=== PATIENT | female | born 1930 | race Caucasian/White ===

== ENCOUNTER 2017-02-28 19:39 | Emergency (ER) | payer MEDICARE, OTHER ==
[~2017-02-28] VITALS: Ht 154.9 cm; Wt 49.9 kg
[2017-02-28 20:21] LABS: BASOPHILS % (AUTO) 0.1 % (0.0-2.0); HEMATOCRIT 35.4 % (31.2-41.9); LYMPHOCYTES # (AUTO) 0.5 K/uL (20.0-40.0); LYMPHOCYTES % (AUTO) 7.2 % (20.5-51.5); MEAN CORPUSCULAR HEMOGLOBIN 29.9 uug (24.7-32.8); MEAN CORPUSCULAR HGB CONC 34 g/dL (32.3-35.6); MEAN CORPUSCULAR VOLUME 88.1 fL (75.5-95.3); MONOCYTES # (AUTO) 0.4 K/uL (2.0-10.0); MONOCYTES % (AUTO) 5.9 % (0.0-11.0); NEUTROPHILS # (AUTO) 5.5 K/uL (1.8-8.9); NEUTROPHILS % (AUTO) 86.8 % (38.5-71.5); PLATELET COUNT (AUTO) 242 K/uL (179-408); RED BLOOD CELL COUNT(AUTO) 4.02 MIL/uL (3.63-4.92); WHITE BLOOD COUNT (AUTO) 6.4 K/uL (3.8-11.8)
[2017-02-28 20:27] LABS: CARBON DIOXIDE 27 mmol/L (21-32); CHLORIDE 101 mmol/L (98-107); CREATININE 0.9 mg/dL (0.6-1.3); GLUCOSE 168 mg/dL (74-106); POTASSIUM 3.7 mmol/L (3.5-5.1); UREA NITROGEN, BLOOD 24 mg/dL (7-18)
[2017-02-28 20:40] LABS: ALANINE AMINOTRANSFERASE 28 U/L (14-59); ALKALINE PHOSPHATASE 89 U/L (50-136); ASPARTATE AMINOTRANSFERASE 31 U/L (15-37); BILIRUBIN,DIRECT 0.1 mg/dL (0.0-0.2); BILIRUBIN,TOTAL 0.5 mg/dL (0.2-1.0); TOTAL PROTEIN, SERUM 7.2 g/dL (6.4-8.2)
[2017-02-28] MEDS ORDERED: LEVOFLOXACIN 500 MG TABLET (20:45)
[2017-02-28] MEDS ORDERED: ONDANSETRON ODT 4 MG TABLET (20:45)
[2017-02-28] MEDS ORDERED: ALBU8HFA4 (20:46)
[2017-02-28] MEDS ORDERED: ATIVAN (20:46)
[2017-02-28] MEDS ORDERED: LIPITOR (20:46)
[2017-02-28] MEDS ORDERED: LORA0.5T PO (21:06)
[2017-02-28] MEDS ORDERED: AZEL23SP EA NOSTRIL (21:06)
[2017-02-28] MEDS ORDERED: PRED20TA PO (21:06)
[2017-02-28] MEDS ORDERED: ALBUTEROL INHALER INH (21:06)
[2017-02-28] MEDS ORDERED: METR500T4 PO (21:06)
[2017-02-28] MEDS ORDERED: BIOT5TAB PO (21:06)
[2017-02-28] MEDS ORDERED: LACT1CAP65 PO (21:06)
[2017-02-28] MEDS ORDERED: ATOR40TA PO (21:06)
[2017-02-28] MEDS ORDERED: ONDA4TAB8 PO (21:06)
[2017-02-28] MEDS ORDERED: GUAI-671 PO (21:06)
[2017-02-28] MEDS ORDERED: AMLO5TAB2 PO (21:06)
[2017-03-01 02:35] VITALS: BP 119/68
[2017-03-08] MEDS ORDERED: IPRATROPIUM BROMIDE 0.5 MG/2.5 ML NEBU ONE (16:57)
[2017-03-08] MEDS ORDERED: ALBUTEROL SULFATE 2.5 MG/ 0.5 ML NEBU ONE (16:57)
[2017-03-20] MEDS ORDERED: FUROSEMIDE 40 MG/4 ML VIAL ONE (20:05)
[2017-03-20] MEDS ORDERED: NITROGLYCERIN OINT 1 GM PACKET TP ONE (20:05)
== END 2017-03-01 02:35 | disposition home or self-care (01) ==
LOC: ER 19:40
DX: A04.72 Enterocolitis due to Clostridium difficile, not specified as recurrent (principal); J44.9 Chronic obstructive pulmonary disease, unspecified; Z88.2 Allergy status to sulfonamides; Z88.5 Allergy status to narcotic agent
CPT/HCPCS: 36415; 71045; 80048; 80076; 83605; 83880; 84484; 85025; 87040 ×2; 93005; 99285; A4663; 70030-TC

== ENCOUNTER 2020-10-29 00:08 | Inpatient (IN) | payer MEDICARE, BC ==
[~2020-10-29] VITALS: Ht 154.9 cm; Wt 42.2 kg
[~2020-10-29 00:08] MED LIST: ALBU8HFA4; ALBUTEROL INHALER INH; AMLO-212 PO; ATIVAN; ATOR40TA PO; AZEL23SP EA NOSTRIL; BIOT5TAB PO; GUAI-671 PO; LACT1CAP65 PO; LEVOFLOXACIN 500 MG TABLET; LIPITOR; LORA0.5T PO; METR-147 PO; ONDA4TAB8 PO; ONDANSETRON ODT 4 MG TABLET; PRED20TA PO
--- NOTE | 2020-10-29 00:25 | NUR ---
Pt bib ambulance from home, cc chest pain. [facility]. pt states she has pneumonia. Pt. sp02 97% ra. Pt aox4.
[2020-10-29 00:44] LABS: HEMATOCRIT 38.7 % (31.2-41.9); MEAN CORPUSCULAR HEMOGLOBIN 30.4 uug (24.7-32.8); PLATELET COUNT (AUTO) 321 K/uL (179-408)
[2020-10-29 00:46] LABS: CREATININE 0.8 mg/dL (0.6-1.3); POTASSIUM 3.6 mmol/L (3.5-5.1)
[2020-10-29] MEDS ORDERED: ALBU8.5H8 IH (01:01)
[2020-10-29] MEDS ORDERED: ONDA4TAB11 PO (01:01)
[2020-10-29] MEDS ORDERED: LEVO75TA7 PO (01:01)
[2020-10-29] MEDS ORDERED: LORA-259 PO (01:01)
--- NOTE | 2020-10-29 01:30 | NUR ---
Reposition pt. in bed, offered pt. food. Pt. now resting with eyes closed. Cp improved slightly. NAD. Vss. Will continue to monitor.
--- NOTE | 2020-10-29 03:23 | NUR ---
Called [facility] for panel call, dr. landrum will call back.
[2020-10-29] MEDS ORDERED: ACETAMINOPHEN 325 MG TABLET PO PRN (04:30)
[2020-10-29] MEDS ORDERED: ONDANSETRON 4 MG/2 ML VIAL IV PRN (04:30)
[2020-10-29] MEDS ORDERED: Z GUARD REMEDY PASTE 57 GM TUBE TOP PRN (04:30)
--- NOTE | 2020-10-29 04:39 | NUR ---
Gave report to YUDITH Richey.
--- NOTE | 2020-10-29 06:06 | NUR ---
Pt had 1 episode of diarrhea. Cleaned pt up, repositioned pt. Pt now sleeping. NAD. Vss. Will continue to monitor.
[2020-10-29] MEDS ORDERED: ONDANSETRON 4 MG/2 ML VIAL ONE (07:10)
--- NOTE | 2020-10-29 08:21 | NUR ---
Gave report to YUDITH Orozco
--- NOTE | 2020-10-29 08:45 | NUR ---
Patient received from ER via gurney, alert and oriented x4. Assisted with ambulating patient to the bathroom to void. Gait is steady, but weak. Patient NSR on monitor at this time. Left hand IV intact and patent with no redness or swelling noted at this time. No c/o chest pain or nausea. No acute distress noted at this time. Made comfortable and oriented patient to room. Call light and personal belongings within easy reach. Will continue to monitor.
[2020-10-29 09:14] VITALS: BP 152/68
[2020-10-29] MEDS: ASPIRIN 81 MG TAB.CHEW PO SCH (09:31)
[2020-10-29 11:20] VITALS: BP 153/65
--- NOTE | 2020-10-29 14:00 | NUR ---
Patient's , Nash at bedside. According to the patient's , patient became agitated and needed to be restrained at [facility] a few days ago, which is why she ended up leaving [facility]. Will endorse to next shift so they are aware.
[2020-10-29 15:13] VITALS: BP 136/58
[2020-10-29 20:00] VITALS: BP 112/78
--- NOTE | 2020-10-29 20:00 | NUR ---
RECEIVED PATIENT AWAKE IN BED. A/O X3. DENIES ANY PAIN OR DISCOMFORT. NO RESP. DISTRESS NOTED. H/L INTACT AND NOTED TO LEFT HAND #20 GAUGE. ON TELE SR WITH OCCASIONAL PAC'S. C/O ABDOMINAL PAIN, STATING ITS HER IBS. VS WNL. CALL LIGHT IN REACH. ALL NEEDS ATTENDED. WILL CONTINUE TO MONITOR AND ASSESS.
[2020-10-29] MEDS ORDERED: LORAZEPAM 1 MG TABLET PO PRN (20:15)
[2020-10-30] VITALS: BP 124/70
[2020-10-30 04:00] VITALS: BP 131/65
[2020-10-30 07:58] LABS: HEMATOCRIT 36.8 % (31.2-41.9); MEAN CORPUSCULAR HEMOGLOBIN 31.4 uug (24.7-32.8); MEAN CORPUSCULAR VOLUME 91.7 fL (75.5-95.3); PLATELET COUNT (AUTO) 352 K/uL (179-408)
[2020-10-30 08:04] LABS: BILIRUBIN,TOTAL 0.3 mg/dL (0.2-1.0); CREATININE 0.7 mg/dL (0.6-1.3); PHOSPHOROUS 3.3 mg/dL (2.5-4.9); POTASSIUM 3.9 mmol/L (3.5-5.1); TOTAL PROTEIN, SERUM 6.9 g/dL (6.4-8.2)
[2020-10-30] MEDS: ASPIRIN 81 MG TAB.CHEW PO SCH (08:05)
[2020-10-30 08:45] LABS: THYROID STIMULATING HORMONE 2.377 mIU/mL (0.358-3.740)
[2020-10-30 12:00] VITALS: BP 120/60
[2020-10-30] MEDS ORDERED: IOHEXOL 350 100 ML INFUS..BTL ONE (14:44)
[2020-10-30] MEDS ORDERED: SWABABLE VALVE TRANSFER SET EA MC ONE (14:44)
[2020-10-30] MEDS ORDERED: IV NORMAL SALINE 250 ML IV ONE (14:44)
[2020-10-30 16:00] VITALS: BP 120/55
[2020-10-30] MEDS ORDERED: ENSURE ENLIVE (VAN) 240 ML LIQUID PO SCH (17:00)
--- NOTE | 2020-10-30 18:05 | NUR ---
dc orders received noted and carried out.dc instruction and education given to the pt.dc heplock per md orders,pt left the facility via private car in stable condition
== END 2020-10-30 18:00 | disposition home or self-care (01) | DRG 392 ==
LOC: ER 00:12 → EDBD 08:28 → TELE3 08:28 → MEDSURG3 10-30 12:05
PROVIDERS: ADMIT Student in an Organized Health Care Education/Training Program; ATTEND Student in an Organized Health Care Education/Training Program
DX: K21.9 Gastro-esophageal reflux disease without esophagitis (principal); E44.0 Moderate protein-calorie malnutrition; Z68.1 Body mass index [BMI] 19.9 or less, adult; F03.90 Unspecified dementia, unspecified severity, without behavioral disturbance, psychotic disturbance, mood disturbance, and anxiety; I10 Essential (primary) hypertension; J44.9 Chronic obstructive pulmonary disease, unspecified; E03.9 Hypothyroidism, unspecified; E78.5 Hyperlipidemia, unspecified; Z20.822 Contact with and (suspected) exposure to COVID-19; J45.909 Unspecified asthma, uncomplicated; Z87.01 Personal history of pneumonia (recurrent); Z79.890 Hormone replacement therapy; F41.9 Anxiety disorder, unspecified
CPT/HCPCS: 36415; 70030-TC; 71045; 71275; 84100; 84443; 85025; 93005; 93307; A4663; G0378; J2405; J7050; Q9967

== ENCOUNTER 2021-10-11 02:37 | Inpatient (IN) | payer MEDICARE, BC ==
[~2021-10-11] VITALS: Ht 154.9 cm; Wt 48.5 kg
[~2021-10-11 02:37] MED LIST changes: +ALBU8.5H8 IH; -ALBU8HFA4; -ALBUTEROL INHALER INH; -ATIVAN; -AZEL23SP EA NOSTRIL; -BIOT5TAB PO; -GUAI-671 PO; -LACT1CAP65 PO; +LEVO75TA7 PO; -LEVOFLOXACIN 500 MG TABLET; -LIPITOR; +LORA-259 PO; -LORA0.5T PO; -METR-147 PO; +ONDA4TAB11 PO; -ONDA4TAB8 PO; -ONDANSETRON ODT 4 MG TABLET; -PRED20TA PO
--- NOTE | 2021-10-11 02:50 | NUR ---
Dr Monsalve into eval patient.
[2021-10-11] MEDS ORDERED: HYDROMORPHONE 1 MG/1 ML DISP.SYRIN IV ONE (03:15)
[2021-10-11] MEDS ORDERED: PROCHLORPERAZINE EDISYLATE 10 MG/2 ML VIAL IV ONE (03:15)
[2021-10-11] MEDS ORDERED: IV NORMAL SALINE 1000 ML BAG IV ONE (03:15)
[2021-10-11] MEDS ORDERED: PROCHLORPERAZINE EDISYLATE 10 MG/2 ML VIAL ONE (03:20)
[2021-10-11] MEDS ORDERED: HYDROMORPHONE 1 MG/1 ML DISP.SYRIN ONE (03:21)
[2021-10-11 03:40] LABS: CARBON DIOXIDE 25 mmol/L (21-32); CHLORIDE 101 mmol/L (98-107); CREATININE 0.7 mg/dL (0.6-1.3); GLUCOSE 153 mg/dL (74-106); HEMATOCRIT 36.9 % (31.2-41.9); MEAN CORPUSCULAR HEMOGLOBIN 30.3 uug (24.7-32.8); MEAN CORPUSCULAR VOLUME 88.2 fL (75.5-95.3); PLATELET COUNT (AUTO) 289 K/uL (179-408); POTASSIUM 3.7 mmol/L (3.5-5.1); UREA NITROGEN, BLOOD 12 mg/dL (7-18)
--- NOTE | 2021-10-11 03:45 | NUR ---
Called [facility] to obtain visit record from ER yesterday.
[2021-10-11] MEDS ORDERED: IOHEXOL 300MG/ML 50 ML VIAL ONE (03:51)
--- NOTE | 2021-10-11 03:51 | NUR ---
Patient requesting to wait for record from [facility] before doing CT scan with contrast. Dr Gricel willard.
[2021-10-11] MEDS ORDERED: SWABABLE VALVE TRANSFER SET EA MC ONE (03:52)
[2021-10-11] MEDS ORDERED: IV NORMAL SALINE 250 ML IV ONE (03:52)
[2021-10-11 03:53] LABS: ALANINE AMINOTRANSFERASE 18 U/L (14-59); ALKALINE PHOSPHATASE 113 U/L (50-136); ASPARTATE AMINOTRANSFERASE 16 U/L (15-37); BILIRUBIN,DIRECT 0.2 mg/dL (0.0-0.2); BILIRUBIN,TOTAL 0.6 mg/dL (0.2-1.0); LIPASE 82 U/L (73-393); TOTAL PROTEIN, SERUM 7.7 g/dL (6.4-8.2)
[2021-10-11] MEDS ORDERED: MAGNESIUM SULFATE/D5W 300 ML ONE (04:22)
[2021-10-11] MEDS: MAGNESIUM SULFATE/D5W 100 ML IV SCH ×3 (04:25→06:20)
--- NOTE | 2021-10-11 04:35 | NUR ---
Dr Monsalve speaking with patient regarding PCXR and CT scan with contrast but patient refused procedures.
--- NOTE | 2021-10-11 04:39 | NUR ---
Paged Epic panel rn liaison, waiting for Dr Ochoa to call back.
[2021-10-11] MEDS ORDERED: HYDROMORPHONE 1 MG/1 ML DISP.SYRIN IV PRN (04:45)
[2021-10-11] MEDS ORDERED: IV D5 1/2 NS 1000 ML 1,000 ML IV PRN (04:45)
[2021-10-11] MEDS ORDERED: REMEDY ESSENTIAL ZINC PASTE 113 GM TP PRN (04:45)
[2021-10-11] MEDS ORDERED: PROCHLORPERAZINE EDISYLATE 10 MG/2 ML VIAL IM PRN (04:45)
[2021-10-11] MEDS ORDERED: ONDANSETRON 4 MG/2 ML VIAL IV PRN (04:45)
[2021-10-11] MEDS ORDERED: MAGNESIUM HYDROXIDE 30 ML LIQUID UDC PO PRN (04:45)
[2021-10-11] MEDS ORDERED: HYDROCODONE/APAP 5-325MG TABLET PO PRN (04:45)
--- NOTE | 2021-10-11 04:49 | NUR ---
Patient refused CT scan and X ray exams.
--- NOTE | 2021-10-11 04:56 | NUR ---
Dr Monsalve spoke with Dr Ochoa, [facility] panel space operations officer who accept patient as Tele admit.
[2021-10-11 05:27] LABS: *BILIRUBIN,URIN NEGATIVE (NEGATIVE); *CLARITY,URINE CLEAR (CLEAR); *COLOR,URINE YELLOW (YELLOW); *KETONES,URINE 1+ (NEGATIVE); *UROBILINOGEN,URINE 0.2 E.U./dl (NORMAL); LEUKOCYTE ESTERASE ,URINE NEGATIVE (NEGATIVE); NITRITE, URINE NEGATIVE (NEGATIVE); PH,URINE 5.5 (5.0-8.0); UGLUCOSE NEGATIVE (NEGATIVE)
[2021-10-11 05:32] LABS: *BLOOD, URINE TRACE (NEGATIVE)
[2021-10-11 05:37] LABS: BACTERIA,URINE NONE SEEN /HPF (NONE SEEN); SQUAMOUS EPITHELIAL CELL,UR FEW /HPF (NONE SEEN); WBC,URINE NONE SEEN /HPF (0-3)
--- NOTE | 2021-10-11 08:03 | NUR ---
Gave report to YUDITH Jerome.
--- NOTE | 2021-10-11 08:20 | NUR ---
Patient transferred to room 311 telemetry via wheelchair accompanied by RN.
[2021-10-11] MEDS ORDERED: PANTOPRAZOLE SODIUM 40 MG VIAL IV SCH (09:00)
[2021-10-11] MEDS ORDERED: LORAZEPAM 1 MG TABLET PO PRN (09:15)
[2021-10-11] MEDS ORDERED: AMLODIPINE 5 MG TABLET PO SCH (09:15)
[2021-10-11] MEDS ORDERED: ALBUTEROL SULFATE 8 GM HFA.AER.AD IH PRN (09:15)
[2021-10-11] MEDS ORDERED: ALBUTEROL SULFATE 2.5 MG/3 ML NEBU NEB PRN (09:30)
[2021-10-11] MEDS ORDERED: POTASSIUM CHLORIDE 20 MEQ POWDER PACKET PO ONE (09:45)
[2021-10-11] MEDS: LEVOTHYROXINE SODIUM 75 MCG TABLET PO SCH (10:01)
[2021-10-11] MEDS ORDERED: IV 1/2NS 1000 ML 1,000 ML IV PRN (10:15)
[2021-10-11] MEDS ORDERED: MORPHINE SULFATE 2 MG/1 ML DISP.SYRIN IV PRN (10:15)
[2021-10-11 11:40] VITALS: BP 141/51
[2021-10-11] MEDS: SUCRALFATE 1 G TABLET PO SCH ×3 (11:42→21:14)
[2021-10-11 16:16] VITALS: BP 130/52
[2021-10-11] MEDS: PANTOPRAZOLE SODIUM 40 MG TABLET.DR PO SCH (16:43)
--- NOTE | 2021-10-11 19:35 | NUR ---
Patient alert oriented, no sob no chest pain, no complain of pain, sinus rhythm on tele. Patient has no episode of nausea or vomiting noted at this time, kept clean dry and comfortable.
[2021-10-11 20:12] VITALS: BP 156/55
[2021-10-11] MEDS: ATORVASTATIN 40 MG TABLET PO SCH (21:15)
[2021-10-12] VITALS: BP 100/47
[2021-10-12 04:00] VITALS: BP 134/47
[2021-10-12] MEDS: PANTOPRAZOLE SODIUM 40 MG TABLET.DR PO SCH ×2 (06:01→17:39)
[2021-10-12] MEDS: LEVOTHYROXINE SODIUM 75 MCG TABLET PO SCH (06:01)
[2021-10-12 06:39] LABS: HEMATOCRIT 35.6 % (31.2-41.9); MEAN CORPUSCULAR HEMOGLOBIN 29.7 uug (24.7-32.8); MEAN CORPUSCULAR VOLUME 87.7 fL (75.5-95.3); PLATELET COUNT (AUTO) 245 K/uL (179-408)
--- NOTE | 2021-10-12 06:42 | NUR ---
Patient was sleeping most of the night, then complain of headaches, ringing on the right ear, and shaking on the right hand, feeling of nausea but no emesis, v/s 147/61, 95%, HR 81, T98.headaches pain unable to rate it, given compazine IM as ordered, then took protonix and thyroid meds, tolerate well. Patient stated that she's feeling better. Patient stated that her nausea, is better
--- NOTE | 2021-10-12 06:54 | NUR ---
Patient in bed notify Gabriela Leonardo regarding patient complain, shaking of right hand, pain on the right ear , but nausea was improved, patient alert oriented, assited to toilet, resting at this time, reassure patient that MD was notified and no order yet, but will continue to notify MD, patient refused IV hydration stated that it givres her head aches, Endorsed to next shift
[2021-10-12 06:55] LABS: BILIRUBIN,TOTAL 0.7 mg/dL (0.2-1.0); CREATININE 0.7 mg/dL (0.6-1.3); MAGNESIUM 1.9 mg/dL (1.8-2.4); PHOSPHOROUS 2.9 mg/dL (2.5-4.9); POTASSIUM 3.8 mmol/L (3.5-5.1); TOTAL PROTEIN, SERUM 6.8 g/dL (6.4-8.2)
[2021-10-12 07:08] LABS: THYROID STIMULATING HORMONE 1.143 mIU/mL (0.358-3.740)
[2021-10-12] MEDS: AMLODIPINE 5 MG TABLET PO SCH ×2 (09:00→11:58)
[2021-10-12] MEDS: SUCRALFATE 1 G TABLET PO SCH ×4 (09:18→20:09)
--- NOTE | 2021-10-12 10:35 | NUR ---
PT WAS SEEN BY DR. CARLOS. D/C TELEMETRY
[2021-10-12 11:53] VITALS: BP 107/65
[2021-10-12] MEDS: ACETAMINOPHEN 325 MG TABLET PO PRN (11:57)
--- NOTE | 2021-10-12 12:00 | NUR ---
MD NOTIFIED OF RINGING IN THE EAR AND SHAKING OF HANDS. NO NEW ORDERS WAS GIVEN
[2021-10-12] MEDS ORDERED: SWABABLE VALVE TRANSFER SET EA MC ONE (12:09)
[2021-10-12] MEDS ORDERED: IV NORMAL SALINE 250 ML IV ONE (12:09)
[2021-10-12] MEDS ORDERED: IOHEXOL 350 100 ML INFUS..BTL ONE (12:10)
--- NOTE | 2021-10-12 12:24 | NUR ---
CT OF ABDOMEN AND PELVIS W/ CONTRAST WAS TAKEN. NOTIFIED MD OF THE RESULT
[2021-10-12 16:12] VITALS: BP 158/53
--- NOTE | 2021-10-12 18:27 | NUR ---
PT AO3-4, AMBULATING AD SENTHIL; NO COMPLAIN OF PAIN; NO SOB NOTED; PT SITTING ON BED AND RELAXING.
--- NOTE | 2021-10-12 19:35 | NUR ---
Patient alert with confusion, no complain of pain at this time, ambulatory with min assist, no complain of nausea no vomiting noted at this time, cont to monitor.
[2021-10-12 20:00] VITALS: BP 143/56
[2021-10-12] MEDS: ATORVASTATIN 40 MG TABLET PO SCH (20:09)
[2021-10-13 04:00] VITALS: BP 147/70
[2021-10-13] MEDS: ACETAMINOPHEN 325 MG TABLET PO PRN (05:41)
[2021-10-13] MEDS: LEVOTHYROXINE SODIUM 75 MCG TABLET PO SCH (06:09)
[2021-10-13] MEDS: PANTOPRAZOLE SODIUM 40 MG TABLET.DR PO SCH (06:10)
--- NOTE | 2021-10-13 06:40 | NUR ---
Patient awake no sob no chest pain, no n/v noted at this time, given Morphine and Tylenol in this shift for left back pain, with help. Patient has no complain of abdominal pain,
[2021-10-13 06:55] LABS: HEMATOCRIT 38.1 % (31.2-41.9); MEAN CORPUSCULAR HEMOGLOBIN 30.2 uug (24.7-32.8); MEAN CORPUSCULAR VOLUME 87.9 fL (75.5-95.3); PLATELET COUNT (AUTO) 309 K/uL (179-408)
[2021-10-13 07:11] LABS: BILIRUBIN,DIRECT 0.1 mg/dL (0.0-0.2); BILIRUBIN,TOTAL 0.7 mg/dL (0.2-1.0); CREATININE 0.7 mg/dL (0.6-1.3); MAGNESIUM 1.8 mg/dL (1.8-2.4); POTASSIUM 3.8 mmol/L (3.5-5.1); TOTAL PROTEIN, SERUM 7.6 g/dL (6.4-8.2)
[2021-10-13 08:00] VITALS: BP 136/68
--- NOTE | 2021-10-13 08:10 | NUR ---
Patient awake alert and oriented with no acute distress noted. Denies abdominal pain at this time.
[2021-10-13] MEDS: SUCRALFATE 1 G TABLET PO SCH ×2 (10:07→11:53)
[2021-10-13] MEDS: AMLODIPINE 5 MG TABLET PO SCH (10:10)
[2021-10-13] MEDS ORDERED: CYCL5TAB PO (12:25)
[2021-10-13] MEDS ORDERED: OMEP40CA21 PO (12:25)
--- NOTE | 2021-10-13 14:01 | NUR ---
Patient discharge education done and discharge instructions packet given. patient verbalized understanding of discharge teachings. Patient discharged at 1400.
[2021-10-13 15:47] VITALS: BP 136/68
== END 2021-10-13 14:05 | disposition home or self-care (01) | DRG 392 ==
LOC: ER 02:40 → TELE3 08:15 → MEDSURG3 10-12 09:28
PROVIDERS: ADMIT Internal Medicine; ATTEND Nurse Practitioner Family
DX: K29.70 Gastritis, unspecified, without bleeding (principal); D68.59 Other primary thrombophilia; K86.2 Cyst of pancreas; R10.13 Epigastric pain; R62.7 Adult failure to thrive; Z68.20 Body mass index [BMI] 20.0-20.9, adult; E78.5 Hyperlipidemia, unspecified; E83.42 Hypomagnesemia; E87.6 Hypokalemia; I10 Essential (primary) hypertension; Z86.73 Personal history of transient ischemic attack (TIA), and cerebral infarction without residual deficits; R53.1 Weakness; Z79.890 Hormone replacement therapy; Z20.822 Contact with and (suspected) exposure to COVID-19; Z87.891 Personal history of nicotine dependence; Z85.820 Personal history of malignant melanoma of skin; J44.9 Chronic obstructive pulmonary disease, unspecified; F03.90 Unspecified dementia, unspecified severity, without behavioral disturbance, psychotic disturbance, mood disturbance, and anxiety; E89.0 Postprocedural hypothyroidism; Z88.2 Allergy status to sulfonamides; I49.3 Ventricular premature depolarization; K58.9 Irritable bowel syndrome, unspecified; Z74.09 Other reduced mobility; M62.830 Muscle spasm of back; K27.9 Peptic ulcer, site unspecified, unspecified as acute or chronic, without hemorrhage or perforation
CPT/HCPCS: 36415; 83605; 83690; 83735; 84100; 84443; 84484; 85025; 93005; 93307; 97161; A4663; C9113; G0378; J0780; J1170; J2270; J3475; J7040; Q9967

== ENCOUNTER 2021-11-01 21:00 | Inpatient (IN) | payer MEDICARE, BC ==
[~2021-11-01] VITALS: Ht 154.9 cm; Wt 42.2 kg
[~2021-11-01 21:00] MED LIST changes: +CYCL5TAB PO; +OMEP40CA21 PO
[2021-11-01] MEDS ORDERED: ASPIRIN 81 MG TAB.CHEW PO ONE (21:30)
[2021-11-01] MEDS ORDERED: ONDANSETRON 4 MG/2 ML VIAL IV ONE (21:30)
--- NOTE | 2021-11-01 21:30 | NUR ---
: ASHLEIGH SOLIS B/S DID MSE .
[2021-11-01 21:40] LABS: HEMATOCRIT 35.6 % (31.2-41.9); MEAN CORPUSCULAR HEMOGLOBIN 29.7 uug (24.7-32.8); MEAN CORPUSCULAR VOLUME 90.3 fL (75.5-95.3); PLATELET COUNT (AUTO) 270 K/uL (179-408)
[2021-11-01] MEDS ORDERED: ONDANSETRON 4 MG/2 ML VIAL ONE (21:41)
[2021-11-01] MEDS ORDERED: ASPIRIN 81 MG TAB.CHEW ONE (21:41)
[2021-11-01 21:47] LABS: CARBON DIOXIDE 26 mmol/L (21-32); CHLORIDE 99 mmol/L (98-107); CREATININE 0.7 mg/dL (0.6-1.3); GLUCOSE 146 mg/dL (74-106); UREA NITROGEN, BLOOD 17 mg/dL (7-18)
--- NOTE | 2021-11-01 21:56 | NUR ---
PATIENT WENT TO [facility] VIA WHEELCHAIR .
[2021-11-01 22:00] LABS: ALANINE AMINOTRANSFERASE 14 U/L (14-59); ALKALINE PHOSPHATASE 90 U/L (50-136); ASPARTATE AMINOTRANSFERASE 13 U/L (15-37); BILIRUBIN,DIRECT 0.1 mg/dL (0.0-0.2); BILIRUBIN,TOTAL 0.3 mg/dL (0.2-1.0); TOTAL PROTEIN, SERUM 6.9 g/dL (6.4-8.2)
[2021-11-01] MEDS ORDERED: IOHEXOL 350 100 ML INFUS..BTL ONE (22:39)
--- NOTE | 2021-11-01 22:57 | NUR ---
INFORMED ZULEYMA SOTELO ABOUT PATIENT FOOD ALLERGY SHES ALLERGIC TO [place] AND PER PATIENT THE LAST TIME SHE HAD CT DONE WITH IODINE SHE DIDNT FEEL GOOD AND SHE WAS SICK . SAGE AWARE AND STILL WANT THE TEST DONE .
--- NOTE | 2021-11-01 23:00 | NUR ---
PATIENT WENT FOR CATSCAN OF THE CHEST TO R/O PE AND AORTIC DISSECTION .
[2021-11-01 23:32] LABS: *BILIRUBIN,URIN NEGATIVE (NEGATIVE); *CLARITY,URINE CLEAR (CLEAR); *COLOR,URINE YELLOW (YELLOW); *KETONES,URINE NEGATIVE (NEGATIVE); *UROBILINOGEN,URINE 0.2 E.U./dl (NORMAL); LEUKOCYTE ESTERASE ,URINE NEGATIVE (NEGATIVE); NITRITE, URINE NEGATIVE (NEGATIVE); UGLUCOSE NEGATIVE (NEGATIVE)
[2021-11-02 00:03] LABS: *BLOOD, URINE TRACE (NEGATIVE)
[2021-11-02 00:06] LABS: BACTERIA,URINE NONE SEEN /HPF (NONE SEEN); RBC,URINE 0-3 /HPF (0-3); SQUAMOUS EPITHELIAL CELL,UR FEW /HPF (NONE SEEN); WBC,URINE 0-3 /HPF (0-3)
[2021-11-02] MEDS ORDERED: ACETAMINOPHEN 325 MG TABLET PO ONE (00:15)
[2021-11-02] MEDS ORDERED: FAMOTIDINE. 20 MG/2 ML VIAL IV ONE ×2 (00:15→00:28)
--- NOTE | 2021-11-02 00:25 | NUR ---
Paged Epic panel director surface transportation, waiting for Martine Briggs TOUCH UP WORKER to call back.
[2021-11-02] MEDS ORDERED: ACETAMINOPHEN 325 MG TABLET ONE (00:28)
[2021-11-02] MEDS ORDERED: MORPHINE SULFATE 2 MG/1 ML DISP.SYRIN IV PRN (00:45)
[2021-11-02] MEDS ORDERED: ONDANSETRON 4 MG/2 ML VIAL IV PRN (00:45)
[2021-11-02] MEDS ORDERED: ACETAMINOPHEN 325 MG TABLET PO PRN (00:45)
[2021-11-02] MEDS ORDERED: MAG HYDROX/AL HYDROX/SIMETH 30 ML LIQUID UDC PO PRN (00:45)
[2021-11-02] MEDS ORDERED: NITROGLYCERIN 0.4 MG/TAB BOTTLE SL PRN (00:45)
[2021-11-02] MEDS ORDERED: DOCUSATE SODIUM 100 MG CAPSULE PO PRN (00:45)
[2021-11-02] MEDS ORDERED: KETOROLAC TROMETHAMINE 15 MG INJ IVP PRN (00:45)
[2021-11-02] MEDS ORDERED: hydrALAZINE HCL 20 MG/1 ML VIAL IV PRN (00:45)
--- NOTE | 2021-11-02 00:52 | NUR ---
REPORT GIVEN TO NURSE KLAUS USING SBARQ . PATIENT GOING TO ROOM 307 DX: CHEST PAIN R/O ACS UNDER EPIC BY WILL MORROW NP .
--- NOTE | 2021-11-02 01:02 | NUR ---
ESCORTED TO THE BATHROOM PATIENT URINATED . BACK TO HER ROOM .
--- NOTE | 2021-11-02 01:15 | NUR ---
PATIENT WHEELED TO ROOM 307 , RECEIVED BT NURSE KLAUS WENT WITH ALL BELONGINGS . V/S WNL NO RESPIRATORY DISTRESS NOTED OR VERBALIZED.
--- NOTE | 2021-11-02 01:20 | NUR ---
RECEIVED PATIENT VIA W/C FROM ER. PATIENT IS A/O X4. C/O HEADACHE AND NAUSEA UPON ARRIVAL TO THE FLOOR. PLACED ON TELE SR 60'S. BP ELEVATED, 182/59. ALL OTHER VS WNL. H/L INTACT AND PATENT, NOTED TO LEFT HAND, #18 GAUGE. PATIENT DENIES ANY CHEST PAIN OR DISCOMFORT. DENIES ANY SOB. PATIENT IS IN PERSONAL NIGHT GOWN AND REFUSING AT THIS TIME TO PUT ON HOSPITAL GOWN. PATIENT IS REQUESTING TO STAY IN HER OWN GOWN. PATIENT HAS CALAMINE LOTION NOTED TO LOWER EXTREMITIES AND WHEN ASKED WHY, PATIENT STATED, "THE LOTION IS FROM THE FLEA BITES FROM HER PUPPY." REFUSED FOR PICTURES TO BE TAKEN ON HER SKIN. ORIENTED PATIENT TO ROOM AND CALL LIGHT. CALL LIGHT IN REACH. ALL NEEDS ATTENDED. WILL CONTINUE TO MONITOR AND ASSESS.
[2021-11-02 01:40] VITALS: BP 182/59
--- NOTE | 2021-11-02 02:15 | NUR ---
PATIENT AWAKE IN BED. VERY NAUSEOUS AND DRY HEAVING. PATIENT STATING THAT SHE IS "VERY SICK." PATIENT SAYS THAT SHE WAS GIVEN CONTRAST FOR CTA EARLIER AND FEELS LIKE SHE IS HAVING A BAD REACTION. PATIENT STATED SHE HAS HAD IV CONTRAST 3 WEEKS AGO AND DID NOT REMEMBER HAVING A BAD REACTION. PATIENT STATED PRIOR IV CONTRAST CAUSED HER TO BE SICK. CALLED OUT TO WILL SALCEDO NP BEER RUNNER TO INFORM.
[2021-11-02] MEDS ORDERED: diphenhydrAMINE 50 MG/1 ML VIAL IV ONE (02:26)
[2021-11-02] MEDS ORDERED: HYDROCORTISONE SOD SUCCINATE 100 MG/2 ML VIAL IV SCH (02:30)
--- NOTE | 2021-11-02 02:35 | NUR ---
PATIENT GIVEN BENADRYL 50MG IV PER RN. BLOOD PRESSURE TRENDING DOWN. Addendum: 11/02/21 at 0351 by KEHINDE RAMIREZ LVN CLARIFICATION- ZOFRAN 4MG IV GIVEN AT THIS TIME. BENADRYL WAS ADMINISTERED AFTER AT 0250 PER RN.
[2021-11-02] MEDS ORDERED: HYDROCORTISONE SOD SUCCINATE 100 MG/2 ML VIAL IV ONE ×2 (02:45→03:14)
--- NOTE | 2021-11-02 02:45 | NUR ---
PATIENT GIVEN HYDROCORTISONE 100MG IV PER RN FOR ALLERGIC REACTION. PATIENT AWAKE IN BED, VERY ANXIOUS. ON TELE SR 83.
[2021-11-02] MEDS ORDERED: OLANZAPINE 10 MG VIAL IM ONE (03:15)
--- NOTE | 2021-11-02 03:45 | NUR ---
PATIENT VERY ANXIOUS. CALLED BACK OUT TO GIAN SOLIS FOR FURTHER ORDERS. RECEIVED ORDER FOR PATIENT TO GET ZYPREXA 5MG IM X1 NOW. ALL VS WNL. ON TELE SR.
--- NOTE | 2021-11-02 04:15 | NUR ---
PATIENT RESTING IN BED. VSS. ON TELE SR. DENIES ANY PAIN OR DISCOMFORT. NO SOB NOTED. CALL LIGHT IN REACH. ALL NEEDS ATTENDED.
[2021-11-02 04:48] LABS: HEMATOCRIT 37.7 % (31.2-41.9); MEAN CORPUSCULAR HEMOGLOBIN 29.6 uug (24.7-32.8); MEAN CORPUSCULAR VOLUME 90.7 fL (75.5-95.3); PLATELET COUNT (AUTO) 268 K/uL (179-408)
[2021-11-02 05:00] LABS: ALANINE AMINOTRANSFERASE 18 U/L (14-59); ALKALINE PHOSPHATASE 99 U/L (50-136); ASPARTATE AMINOTRANSFERASE 13 U/L (15-37); BILIRUBIN,TOTAL 0.4 mg/dL (0.2-1.0); CARBON DIOXIDE 27 mmol/L (21-32); CHLORIDE 102 mmol/L (98-107); CREATININE 0.8 mg/dL (0.6-1.3); GLUCOSE 139 mg/dL (74-106); MAGNESIUM 1.8 mg/dL (1.8-2.4); PHOSPHOROUS 2.8 mg/dL (2.5-4.9); POTASSIUM 3.7 mmol/L (3.5-5.1); TOTAL PROTEIN, SERUM 7.3 g/dL (6.4-8.2); UREA NITROGEN, BLOOD 13 mg/dL (7-18)
[2021-11-02 05:25] LABS: THYROID STIMULATING HORMONE 0.691 mIU/mL (0.358-3.740)
[2021-11-02 05:30] VITALS: BP 159/62
--- NOTE | 2021-11-02 06:25 | NUR ---
PATIENT AWAKE IN BED. ON TELE SR. DENIES ANY PAIN AT THIS TIME.
[2021-11-02] MEDS: ENOXAPARIN SODIUM 60 MG/0.6 ML DISP.SYRIN SQ SCH (08:44)
[2021-11-02] MEDS ORDERED: methylPREDNISolone SOD SUCC 40 MG/ML VIAL IV SCH (09:00)
[2021-11-02] MEDS ORDERED: ASPIRIN 81 MG TAB.CHEW PO SCH (09:00)
--- NOTE | 2021-11-02 11:00 | NUR ---
DISCONTINUE TELEMETRY PER DR. CARLOS
[2021-11-02 11:31] VITALS: BP 124/49
[2021-11-02] MEDS ORDERED: ALBUTEROL SULFATE 8 GM HFA.AER.AD IH PRN (12:00)
[2021-11-02] MEDS ORDERED: LORAZEPAM 1 MG TABLET PO PRN (12:00)
[2021-11-02] MEDS ORDERED: ALBUTEROL SULFATE 2.5 MG/3 ML NEBU NEB PRN (12:00)
[2021-11-02] MEDS: AMLODIPINE 5 MG TABLET PO SCH (12:38)
[2021-11-02 16:00] VITALS: BP 119/51
--- NOTE | 2021-11-02 18:35 | NUR ---
PT IS CALM AND RELAX. SELF CARE. NO ACUTE DISTRESS NOTED; NO PAIN; NO SOB NOTED
[2021-11-02 19:21] LABS: IRON, SERUM 44 ug/dL (50-175)
[2021-11-02 20:00] VITALS: BP 141/51
[2021-11-02] MEDS ORDERED: SIMVASTATIN 20 MG TABLET PO SCH (21:00)
[2021-11-03 04:00] VITALS: BP 121/51
--- NOTE | 2021-11-03 04:15 | NUR ---
pt was discharge; pt is going home with natasha. all belongings accounted for. pt vitals wnl. pt walk to the [employer] and rode their private car. Addendum: 11/03/21 at 1823 by JEREMIAH ROMO RN pt is discharge @ 1600
[2021-11-03] MEDS ORDERED: LEVOTHYROXINE SODIUM 75 MCG TABLET PO SCH (07:00)
[2021-11-03] MEDS: AMLODIPINE 5 MG TABLET PO SCH (09:38)
[2021-11-03] MEDS: ENOXAPARIN SODIUM 60 MG/0.6 ML DISP.SYRIN SQ SCH (09:39)
[2021-11-03 11:31] VITALS: BP 164/58
[2021-11-03] MEDS ORDERED: SIMV-46 PO (14:14)
[2021-11-03] MEDS ORDERED: LEVO50TA8 PO (14:14)
[2021-11-03] MEDS ORDERED: DOCU-141 PO (14:16)
[2021-11-03] MEDS ORDERED: FERR324T17 PO (14:18)
== END 2021-11-03 16:00 | disposition home or self-care (01) | DRG 383 ==
LOC: ER 21:01 → TELE3 11-02 00:44 → MEDSURG3 11-02 11:24
PROVIDERS: ADMIT Internal Medicine; ATTEND Internal Medicine
DX: K27.9 Peptic ulcer, site unspecified, unspecified as acute or chronic, without hemorrhage or perforation (principal); J98.59 Other diseases of mediastinum, not elsewhere classified; D68.59 Other primary thrombophilia; J45.901 Unspecified asthma with (acute) exacerbation; K50.90 Crohn's disease, unspecified, without complications; Z68.1 Body mass index [BMI] 19.9 or less, adult; E44.0 Moderate protein-calorie malnutrition; R07.9 Chest pain, unspecified; K56.41 Fecal impaction; R62.7 Adult failure to thrive; E78.5 Hyperlipidemia, unspecified; Z20.822 Contact with and (suspected) exposure to COVID-19; Z86.73 Personal history of transient ischemic attack (TIA), and cerebral infarction without residual deficits; Z85.820 Personal history of malignant melanoma of skin; Z87.891 Personal history of nicotine dependence; K29.70 Gastritis, unspecified, without bleeding; I11.9 Hypertensive heart disease without heart failure; R53.1 Weakness; Z74.09 Other reduced mobility; G31.84 Mild cognitive impairment of uncertain or unknown etiology; E89.0 Postprocedural hypothyroidism; E61.1 Iron deficiency; R73.03 Prediabetes; Z79.890 Hormone replacement therapy; F43.22 Adjustment disorder with anxiety
CPT/HCPCS: 36415; 71045; 71275; 82378; 83550; 83605; 83690; 83735; 84100; 84443; 84484; 85025; 85730; 87040; 93005; A4663; G0378; J0360; J1200; J1650; J1720; J1885; J2358; J2405; J2920; J3490; Q9967

== ENCOUNTER 2021-11-10 20:42 | Emergency (ER) | payer BC, MEDICARE ==
[~2021-11-10 20:42] MED LIST changes: -ATOR40TA PO; +DOCU-141 PO; +FERR324T17 PO; +LEVO50TA8 PO; -LEVO75TA7 PO; -ONDA4TAB11 PO; +SIMV-46 PO
--- NOTE | 2021-11-10 21:20 | NUR ---
PATIENT WAS CALLED TO BE TRIAGED BUT WAS NOT PRESENT IN THE WAITING ROOM OR OUTSIDE PF ER.
--- NOTE | 2021-11-10 21:40 | NUR ---
PATIENT WAS CALLED TO BE TRIAGED BUT WAS NOT PRESENT IN THE WAITING ROOM.
--- NOTE | 2021-11-10 22:00 | NUR ---
PATIENT WAS CALLED TO BE TRIAGED BUT NOT PRESENT IN THE WAITING ROOM OR OUTSIDE OF ER. PATIENT WAS NOT TRIAGED OR SEEN BY ERMD.
== END 2021-11-10 22:00 | disposition left against medical advice (07) ==
LOC: ER 20:43
DX: Z53.21 Procedure and treatment not carried out due to patient leaving prior to being seen by health care provider (principal)

== ENCOUNTER 2022-03-01 16:26 | Emergency (ER) | payer MEDICARE, BC ==
[~2022-03-01] VITALS: Ht 157.5 cm; Wt 42.2 kg
[2022-03-01] MEDS ORDERED: MORPHINE SULFATE 2 MG/1 ML DISP.SYRIN IV ONE (17:30)
[2022-03-01] MEDS ORDERED: ONDANSETRON 4 MG/2 ML VIAL IV ONE (17:30)
[2022-03-01] MEDS ORDERED: MORPHINE SULFATE 4 MG/1 ML DISP.SYRIN ONE (17:42)
[2022-03-01] MEDS ORDERED: ONDANSETRON 4 MG/2 ML VIAL ONE (17:42)
[2022-03-01 17:57] LABS: HEMATOCRIT 40.6 % (31.2-41.9); MEAN CORPUSCULAR HEMOGLOBIN 29.8 uug (24.7-32.8); MEAN CORPUSCULAR VOLUME 90.8 fL (75.5-95.3); PLATELET COUNT (AUTO) 374 K/uL (179-408)
[2022-03-01 18:09] LABS: CARBON DIOXIDE 26 mmol/L (21-32); CHLORIDE 103 mmol/L (98-107); CREATININE 0.6 mg/dL (0.6-1.3); GLUCOSE 112 mg/dL (74-106); POTASSIUM 3.7 mmol/L (3.5-5.1); UREA NITROGEN, BLOOD 10 mg/dL (7-18)
[2022-03-01 18:18] LABS: ALANINE AMINOTRANSFERASE 22 U/L (14-59); ALKALINE PHOSPHATASE 114 U/L (50-136); ASPARTATE AMINOTRANSFERASE 23 U/L (15-37); BILIRUBIN,DIRECT 0.1 mg/dL (0.0-0.2); BILIRUBIN,TOTAL 0.6 mg/dL (0.2-1.0); LIPASE 81 U/L (73-393); TOTAL PROTEIN, SERUM 8.3 g/dL (6.4-8.2)
[2022-03-01] MEDS ORDERED: ONDA4TAB11 PO (19:09)
[2022-03-01 20:21] VITALS: BP 118/80
[2022-03-01 20:54] LABS: *BILIRUBIN,URIN NEGATIVE (NEGATIVE); *BLOOD, URINE 2+ (NEGATIVE); *COLOR,URINE YELLOW (YELLOW); *KETONES,URINE 1+ (NEGATIVE); *UROBILINOGEN,URINE 0.2 E.U./dl (NORMAL); LEUKOCYTE ESTERASE ,URINE 3+ (NEGATIVE); NITRITE, URINE POSITIVE (NEGATIVE); UGLUCOSE NEGATIVE (NEGATIVE)
[2022-03-01 20:56] LABS: *CLARITY,URINE SLIGHTLY CLOUDY (CLEAR)
[2022-03-01 21:12] LABS: BACTERIA,URINE MANY /HPF (NONE SEEN); WBC,URINE 50-80 /HPF (0-3)
[2022-03-01 21:13] LABS: SQUAMOUS EPITHELIAL CELL,UR MODERATE /HPF (NONE SEEN)
== END 2022-03-01 20:23 | disposition home or self-care (01) ==
LOC: ER 16:26
DX: R19.7 Diarrhea, unspecified (principal); R10.9 Unspecified abdominal pain; R10.13 Epigastric pain; R05.9 Cough, unspecified; J44.9 Chronic obstructive pulmonary disease, unspecified; Z88.6 Allergy status to analgesic agent; Z88.1 Allergy status to other antibiotic agents; Z88.2 Allergy status to sulfonamides; K58.9 Irritable bowel syndrome, unspecified
CPT/HCPCS: 99285; 74176; 96374; 71045; 96375; 80076; 80048; 81001; 83690; 85025; 84484 ×2; 36415; 93005; J2405; J2270; J7040; A4663

== ENCOUNTER 2022-03-21 17:39 | Inpatient (IN) | payer MEDICARE, BC ==
[~2022-03-21] VITALS: Ht 157.5 cm; Wt 43.1 kg
[~2022-03-21 17:39] MED LIST changes: +ONDA4TAB11 PO
[2022-03-21] MEDS ORDERED: ONDANSETRON 4 MG/2 ML VIAL ONE (18:14)
[2022-03-21] MEDS ORDERED: MORPHINE SULFATE 4 MG/1 ML DISP.SYRIN ONE ×2 (18:15→23:15)
[2022-03-21] MEDS ORDERED: MORPHINE SULFATE 4 MG/1 ML DISP.SYRIN IV ONE ×2 (18:15→23:15)
[2022-03-21] MEDS ORDERED: ONDANSETRON 4 MG/2 ML VIAL IV ONE (18:15)
--- NOTE | 2022-03-21 18:20 | NUR ---
PT refused to have CT scan, Dr Michelle made aware.
[2022-03-21 18:33] LABS: HEMATOCRIT 36.3 % (31.2-41.9); MEAN CORPUSCULAR HEMOGLOBIN 30.3 uug (24.7-32.8); PLATELET COUNT (AUTO) 338 K/uL (179-408)
[2022-03-21 18:35] LABS: CARBON DIOXIDE 25 mmol/L (21-32); CHLORIDE 101 mmol/L (98-107); CREATININE 0.8 mg/dL (0.6-1.3); GLUCOSE 131 mg/dL (74-106); POTASSIUM 4.2 mmol/L (3.5-5.1); UREA NITROGEN, BLOOD 15 mg/dL (7-18)
[2022-03-21 18:40] LABS: ALANINE AMINOTRANSFERASE 16 U/L (14-59); ALKALINE PHOSPHATASE 100 U/L (50-136); ASPARTATE AMINOTRANSFERASE 15 U/L (15-37); BILIRUBIN,DIRECT 0.2 mg/dL (0.0-0.2); BILIRUBIN,TOTAL 0.6 mg/dL (0.2-1.0); LIPASE 110 U/L (73-393); TOTAL PROTEIN, SERUM 7.7 g/dL (6.4-8.2)
[2022-03-21] MEDS ORDERED: IV NS 1000 ML 1,000 ML IV ONE (19:00)
[2022-03-21] MEDS ORDERED: SIME80TA15 PO (21:06)
[2022-03-21] MEDS ORDERED: ONDA4TAB11 PO (21:06)
--- NOTE | 2022-03-21 21:20 | NUR ---
Up to bathroom, urine collected and sent to lab, awaiting results. IVF almost done.
[2022-03-21 21:42] LABS: *BILIRUBIN,URIN NEGATIVE (NEGATIVE); *BLOOD, URINE 1+ (NEGATIVE); *COLOR,URINE YELLOW (YELLOW); *KETONES,URINE TRACE (NEGATIVE); *UROBILINOGEN,URINE 0.2 E.U./dl (NORMAL); LEUKOCYTE ESTERASE ,URINE TRACE (NEGATIVE); NITRITE, URINE NEGATIVE (NEGATIVE); UGLUCOSE NEGATIVE (NEGATIVE)
[2022-03-21 21:50] LABS: *CLARITY,URINE HAZY (CLEAR)
[2022-03-21 21:52] LABS: BACTERIA,URINE NONE SEEN /HPF (NONE SEEN); SQUAMOUS EPITHELIAL CELL,UR FEW /HPF (NONE SEEN)
--- NOTE | 2022-03-21 23:17 | NUR ---
C/O abd pain at this time, went to bathroom , will be medicated as per order.
[2022-03-21] MEDS ORDERED: IOHEXOL 300MG/ML 100 ML INFUS..BTL ONE (23:22)
[2022-03-21] MEDS ORDERED: IV NORMAL SALINE 250 ML IV ONE (23:23)
[2022-03-21] MEDS ORDERED: SWABABLE VALVE TRANSFER SET EA MC ONE (23:23)
--- NOTE | 2022-03-21 23:35 | NUR ---
Patient was talking with ER MD, patient want's to go home, at bedside.
--- NOTE | 2022-03-21 23:58 | NUR ---
Assisted back to bed, unable to get b/p at this time, will inform ER MD.
[2022-03-22] MEDS ORDERED: ONDANSETRON 4 MG/2 ML VIAL ONE (00:02)
--- NOTE | 2022-03-22 00:09 | NUR ---
Medicated for c/o nausea at this time.
[2022-03-22] MEDS ORDERED: ONDANSETRON 4 MG/2 ML VIAL IV ONE (00:15)
--- NOTE | 2022-03-22 00:18 | NUR ---
Patients states pain is better at this time. Resting in bed sent home, will stay in ER tonight. Will continue with frequent monitoring.
--- NOTE | 2022-03-22 01:13 | NUR ---
Called [facility] for panel call, Dr. Weeks provider relations representative.
[2022-03-22] MEDS ORDERED: ACETAMINOPHEN 325 MG TABLET PO PRN (01:30)
[2022-03-22] MEDS ORDERED: MORPHINE SULFATE 2 MG/1 ML DISP.SYRIN IVP PRN (01:30)
[2022-03-22] MEDS ORDERED: MAGNESIUM HYDROXIDE 30 ML LIQUID UDC PO PRN (01:30)
[2022-03-22] MEDS ORDERED: hydrALAZINE HCL 20 MG/1 ML VIAL IV PRN (01:30)
[2022-03-22] MEDS ORDERED: ONDANSETRON 4 MG/2 ML VIAL IV PRN (01:30)
--- NOTE | 2022-03-22 02:06 | NUR ---
Patient resting in bed remains easy to arouse, no voiced c/o pain or discomfort at this time. Will continue to monitor.
[2022-03-22] MEDS ORDERED: CEFEPIME HCL 1 G VIAL ONE (02:08)
[2022-03-22] MEDS: IV NS 1000 ML 1,000 ML IV SCH ×5 (02:22→20:01)
[2022-03-22] MEDS: CEFEPIME HCL 1 G in IV DEXTROSE 5% 50 ML IV SCH ×4 (02:42→21:33)
--- NOTE | 2022-03-22 03:20 | NUR ---
Patient resting no s/s of any distress. No change in primary assessment.IVF as per order via the pump @ 80/hr.
--- NOTE | 2022-03-22 05:36 | NUR ---
Awake up to bathroom and back to bed.
--- NOTE | 2022-03-22 06:12 | NUR ---
Maxepime was given @ 0242, not 8 hours yet.
--- NOTE | 2022-03-22 08:28 | NUR ---
Report given to Nurse Peralta.
--- NOTE | 2022-03-22 08:55 | NUR ---
Pt in stable condition, Transported to Rm 209, received by Fabian ZURITA.
[2022-03-22] MEDS: HEPARIN SODIUM,PORCINE 5,000 UNITS/ML VIAL SQ SCH ×3 (09:00→21:39)
[2022-03-22] MEDS: DOCUSATE SODIUM 100 MG CAPSULE PO SCH ×2 (11:19→17:00)
[2022-03-22] MEDS ORDERED: ALBUTEROL SULFATE 2.5 MG/3 ML NEBU NEB PRN (12:45)
[2022-03-22] MEDS ORDERED: LORAZEPAM 1 MG TABLET PO PRN ×2 (12:45→13:32)
[2022-03-22] MEDS ORDERED: ONDANSETRON ODT 4 MG TAB.RAPDIS SL PRN (12:45)
--- NOTE | 2022-03-22 12:50 | NUR ---
1200; Patient refusing telemetry monitoring. Patient stated that electrode is pulling on her abdomen and does not want it to be replaced ay any location on her body. MD to be informed.
[2022-03-22] MEDS ORDERED: LEVO75TA56 PO (13:08)
[2022-03-22] MEDS ORDERED: AMLODIPINE 2.5 MG TABLET PO ONE (14:00)
[2022-03-22] MEDS ORDERED: LEVOTHYROXINE SODIUM 75 MCG TABLET PO ONE (14:00)
[2022-03-22 16:47] VITALS: BP 120/50
[2022-03-22] MEDS: SIMETHICONE 80 MG TAB.CHEW PO SCH ×2 (18:28→21:33)
[2022-03-22 20:00] VITALS: BP 135/60
[2022-03-22] MEDS ORDERED: DOCUSATE SODIUM 100 MG CAPSULE PO SCH (21:00)
[2022-03-22] MEDS ORDERED: SIMVASTATIN 20 MG TABLET PO SCH (21:00)
[2022-03-23 04:00] VITALS: BP 107/48
[2022-03-23] MEDS: CEFEPIME HCL 1 G in IV DEXTROSE 5% 50 ML IV SCH ×2 (06:35→14:00)
[2022-03-23] MEDS ORDERED: LEVOTHYROXINE SODIUM 75 MCG TABLET PO SCH (07:00)
[2022-03-23 08:50] LABS: HEMATOCRIT 33.1 % (31.2-41.9); MEAN CORPUSCULAR HEMOGLOBIN 29.8 uug (24.7-32.8); MEAN CORPUSCULAR VOLUME 91.8 fL (75.5-95.3); PLATELET COUNT (AUTO) 268 K/uL (179-408)
[2022-03-23] MEDS ORDERED: AMLODIPINE 5 MG TABLET PO SCH (09:00)
[2022-03-23] MEDS: SIMETHICONE 80 MG TAB.CHEW PO SCH ×4 (09:00→17:46)
[2022-03-23] MEDS: HEPARIN SODIUM,PORCINE 5,000 UNITS/ML VIAL SQ SCH (09:00)
[2022-03-23] MEDS ORDERED: LEVOTHYROXINE SODIUM 50 MCG TABLET PO SCH (09:00)
[2022-03-23 09:21] LABS: BILIRUBIN,TOTAL 0.6 mg/dL (0.2-1.0); CREATININE 0.6 mg/dL (0.6-1.3); PHOSPHOROUS 3.3 mg/dL (2.5-4.9); POTASSIUM 3.8 mmol/L (3.5-5.1); TOTAL PROTEIN, SERUM 6.2 g/dL (6.4-8.2)
[2022-03-23 10:02] VITALS: BP 135/56
[2022-03-23 13:10] VITALS: BP 135/56
[2022-03-23] MEDS: HYOSCYAMINE SULFATE 0.125 MG TABLET PO PRN ×2 (13:11→17:46)
[2022-03-23] MEDS: DOCUSATE SODIUM 100 MG CAPSULE PO SCH ×2 (13:11→17:00)
[2022-03-23] MEDS ORDERED: HYOS0.1273 PO (17:40)
--- NOTE | 2022-03-23 20:30 | NUR ---
Patient discharge home, picker machine operator by via private car, patient took all belongings.
== END 2022-03-23 21:10 | disposition home or self-care (01) | DRG 392 ==
LOC: ER 17:52 → TRANSITION 03-22 01:20 → TELE 03-22 08:31 → MED 03-22 21:00
PROVIDERS: ADMIT Nurse Practitioner Acute Care; ATTEND Nurse Practitioner Acute Care
DX: K58.9 Irritable bowel syndrome, unspecified (principal); N39.0 Urinary tract infection, site not specified; K86.2 Cyst of pancreas; E44.0 Moderate protein-calorie malnutrition; Z68.1 Body mass index [BMI] 19.9 or less, adult; J44.9 Chronic obstructive pulmonary disease, unspecified; B96.89 Other specified bacterial agents as the cause of diseases classified elsewhere; E03.9 Hypothyroidism, unspecified; E78.5 Hyperlipidemia, unspecified; I10 Essential (primary) hypertension; K21.9 Gastro-esophageal reflux disease without esophagitis; Z87.891 Personal history of nicotine dependence; Z88.2 Allergy status to sulfonamides; J45.909 Unspecified asthma, uncomplicated; Z20.822 Contact with and (suspected) exposure to COVID-19
CPT/HCPCS: 36415; 83605; 83690; 84100; 85025; 93005; A4663; G0378; J0692; J1644; J2270; J2405; J7040; Q9967